=== PATIENT | female | born 1980 | race Caucasian/White ===

== ENCOUNTER 2017-11-26 07:15 | Day surgery (SDC) | payer OTHER ==
[~2017-11-26] VITALS: Ht 165.1 cm; Wt 95.1 kg
[~2017-11-26 07:15] MED LIST: ALBU90OI INH; BENZ100A; BENZ100A PO; CARI350 PO; CODACE30 PO; DIAZ5 PO; GABA100; HYDCOR1TOA TOP; HYDMOR2; HYDMOR2 PO; IBUP800; IBUP800 PO; KETO10 PO; LIDO2TG30 TOP; MAGCIT300 PO; METPRE4DP PO; MONT10T PO; OXYACE5T PO; OXYC5 PO; PROACE100; PROACE100 PO; PROM25 PO; RANI150; RANI150 PO; RXOXYACE PO; RXPROACE PO; RXPROM25 PO; SILSUL1TC TOP; TOPI100; TRAM50 PO; Ultram50 MG PO; [UNRECOGNIZED DRUG - OTHER]
== END 2017-11-26 10:27 | disposition home or self-care (01) ==
LOC: ORSCSDS 07:15
DX: R10.2 Pelvic and perineal pain (principal); E11.9 Type 2 diabetes mellitus without complications; E66.01 Morbid (severe) obesity due to excess calories; Z68.37 Body mass index [BMI] 37.0-37.9, adult; N83.292 Other ovarian cyst, left side; N83.291 Other ovarian cyst, right side; N83.8 Other noninflammatory disorders of ovary, fallopian tube and broad ligament; J45.909 Unspecified asthma, uncomplicated; E66.9 Obesity, unspecified; Z68.34 Body mass index [BMI] 34.0-34.9, adult; Z79.899 Other long term (current) drug therapy
CPT/HCPCS: 88305; J0171; J1100; J1885; J2250; J2405; J2710; J2765; J3010; J7120

== ENCOUNTER 2017-11-28 21:35 | Emergency (ER) | payer OTHER ==
[~2017-11-28] VITALS: Ht 165.1 cm; Wt 95.2 kg
[2017-11-28] MEDS ORDERED: Oxycodone HCl5 M1 PO (21:50)
[2017-11-28] MEDS ORDERED: NYST237S MT (22:20)
== END 2017-11-28 22:24 | disposition home or self-care (01) ==
LOC: ER 21:35
DX: J02.9 Acute pharyngitis, unspecified (principal); J45.909 Unspecified asthma, uncomplicated; Z90.712 Acquired absence of cervix with remaining uterus; Z88.5 Allergy status to narcotic agent; Z88.8 Allergy status to other drugs, medicaments and biological substances; Z90.49 Acquired absence of other specified parts of digestive tract; Z87.891 Personal history of nicotine dependence
CPT/HCPCS: 87081; 87430; 99283

== ENCOUNTER → 2017-12-03 | Outpatient (CLI) | payer OTHER ==
[~2017-12-03] MED LIST changes: +NYST237S MT; +Oxycodone HCl5 M1 PO
[2017-12-03 18:32] LABS: Bilirubin, Urine Neg (Neg); Blood, Urine 1+ (Neg); Glucose Qualitative, Urine Neg (Neg); Ketones, Urine Neg (Neg); Leukocyte Esterase, Urine Neg (Neg); Nitrite, Urine Neg (Neg); Protein, Urine 1+ (Neg); Urobilinogen, Urine NORM (Normal)
[2017-12-03 18:54] LABS: Appearance, Urine Turbid (Clear); Color, Urine Yellow (P-Yellow)
[2017-12-03 18:55] LABS: Amorphous Heavy (0-Heavy); Bacteria Not Seen /hpf; Red Blood Cells, Urine Not Seen /hpf (0-2); Squamous Epithelial Cells Not Seen /hpf (Few); White Blood Cells, Urine Not Seen /hpf (0-5)
== END | disposition home or self-care (01) ==
LOC: LAB 15:30
PROVIDERS: Obstetrics & Gynecology
DX: R39.9 Unspecified symptoms and signs involving the genitourinary system (principal)
CPT/HCPCS: 81001

== ENCOUNTER 2019-08-04 07:33 | Day surgery (SDC) | payer OTHER ==
[~2019-08-04] VITALS: Ht 165.1 cm; Wt 95.0 kg
--- NOTE | 2019-08-04 07:58 | NUR ---
History, Chart, Medications and Allergies reviewed before start of procedure. Patient States Post-Procedure ride home has been arranged. Patient states colon prep results clear.
[2019-08-04] MEDS ORDERED: PREG100 PO (08:10)
[2019-08-04] MEDS ORDERED: IBUP800 PO (08:10)
--- NOTE | 2019-08-04 08:29 | NUR ---
08/04/19 0829 Chance Chinchilla PATIENT DETERMINED TO BE ASA APPROPRIATE FOR PROPOFOL SEDATION PRIOR TO START OF PROCEDURE BY . 3-LEAD EKG REVIEWED WITH PHYSICIAN PRIOR TO START OF PROCEDURE.PATIENT CONFIRMS NPO STATUS AND AGREES WITH SCHEDULED PROCEDURE.History, Chart, Medications and Allergies reviewed before start of procedure.MONITOR INTACT WITH CONTINUOUS PULSE OXIMETRY AND INTERMITTENT BP.O2 VIA N/C INTACT THROUGHOUT SEDATION/PROCEDURE.
--- NOTE | 2019-08-04 09:15 | NUR ---
Discharge instructions reviewed with patient. Patient verbalizes understanding. Copy given to patient to take home. Discharged via wheelchair to private car for ride home.
== END 2019-08-04 09:19 | disposition home or self-care (01) ==
LOC: ORSCMMR 07:33 → ORD 08:30 → ORSCMMR 08:30
PROVIDERS: Internal Medicine Gastroenterology
PROC: 0DBN8ZX Excision of Sigmoid Colon, Via Natural or Artificial Opening Endoscopic, Diagnostic (ICD-10-PCS; principal; 2019-08-04 08:30)
DX: K62.5 Hemorrhage of anus and rectum (principal); D12.5 Benign neoplasm of sigmoid colon; R10.9 Unspecified abdominal pain; R19.4 Change in bowel habit; F17.210 Nicotine dependence, cigarettes, uncomplicated; Z79.899 Other long term (current) drug therapy
CPT/HCPCS: 88305; J2704; J7120

== ENCOUNTER → 2020-10-16 | Outpatient (CLI) | payer OTHER ==
[~2020-10-16] MED LIST changes: +EXTRA PAIN REL1 EAC2 PO; +FLOVENT HFA12 GM INH; +IBU800 MG PO; +PREG100 PO
[2020-10-18 16:11] LABS: HPV 16 Negative (Negative); HPV 18 Negative (Negative); HPV OTHER HR TYPES Negative (Negative)
== END | disposition home or self-care (01) ==
LOC: LAB SHORT 18:59
PROVIDERS: Physician Assistant
DX: Z01.419 Encounter for gynecological examination (general) (routine) without abnormal findings (principal)
CPT/HCPCS: 87624; G0123

== ENCOUNTER 2022-12-14 13:16 | Emergency (ER) | payer OTHER ==
[~2022-12-14] VITALS: Ht 165.1 cm; Wt 94.3 kg
[2022-12-14 14:25] LABS: BASOPHILS ABSOLUTE AUTO 0.02 K/mm3 (0.00-0.23); BASOPHILS PERCENT AUTO 0 % (0-2); EOSINOPHILS ABSOLUTE AUTO 0.04 K/mm3 (0.00-0.68); EOSINOPHILS PERCENT AUTO 1 % (0-6); Hematocrit 39.9 % (33.0-51.0); Hemoglobin 13.9 g/dL (11.5-16.0); IMMATURE GRAN ABSOLUTE AUTO 0.01 K/mm3 (0.00-0.10); IMMATURE GRAN PERCENT AUTO 0 % (0-1); LYMPHOCYTES ABSOLUTE AUTO 1.25 K/mm3 (0.84-5.20); LYMPHOCYTES PERCENT AUTO 26 % (21-46); MONOCYTES ABSOLUTE AUTO 0.55 K/mm3 (0.16-1.47); MONOCYTES PERCENT AUTO 11 % (4-13); Mean Corpuscular HGB 29.5 pg (26.0-34.0); Mean Corpuscular HGB Conc 34.8 g/dL (31.5-36.5); Mean Corpuscular Volume 85 fL (80-100); Mean Platelet Volume 9.4 fL (9.1-12.4); NEUTROPHILS ABSOLUTE AUTO 3.03 K/mm3 (1.96-9.15); NEUTROPHILS PERCENT AUTO 62 % (41-73); Platelet Count 232 K/mm3 (150-400); RDW Coefficient Variation 12.1 % (11.7-14.2); RDW Standard Deviation 37.2 fL (35.1-46.3); Red Blood Cell Count 4.71 M/mm3 (3.80-5.20)
[2022-12-14 14:38] LABS: Albumin, Blood 4.2 g/dL (3.4-5.0); Albumin/Globulin Ratio 1.2 (0.8-1.8); Bilirubin, Total 0.7 mg/dL (0.1-1.0); Bun/Creatinine Ratio 18.3 (12.0-20.0); Calcium, Blood 9.4 mg/dL (8.5-10.1); Creatinine, Blood 0.71 mg/dL (0.40-1.00); Globulin, Blood 3.6 g/dL (2.2-4.0); Potassium, Blood 3.3 mmol/L (3.5-5.5); Total Protein, Blood 7.8 g/dL (6.4-8.2)
[2022-12-14] MEDS ORDERED: AZIT250 PO (17:38)
== END 2022-12-14 18:10 | disposition home or self-care (01) ==
LOC: ER 13:16
PROVIDERS: Student in an Organized Health Care Education/Training Program
DX: J18.9 Pneumonia, unspecified organism (principal); Z88.5 Allergy status to narcotic agent; Z88.8 Allergy status to other drugs, medicaments and biological substances; Z79.899 Other long term (current) drug therapy; Z87.891 Personal history of nicotine dependence
CPT/HCPCS: 36415; 71046; 80053; 83690; 84484; 85025; 93005; 93010; 99285-25